=== PATIENT | male | born 1980 | race Asian ===

== ENCOUNTER 2024-09-09 15:23 | Emergency (ER) | payer OTHER ==
[~2024-09-09] VITALS: Ht 167.6 cm; Wt 90.9 kg
[2024-09-09 16:23] VITALS: BP 124/86; PULSE 84; RESP 19; TEMP 97.4; O2SAT 95
[2024-09-09] MEDS: IBUPROFEN 600 MG TABLET PO ONE (17:45)
[2024-09-09] MEDS: DOXYCYCLINE HYCLATE 100 MG TABLET PO ONE (17:45)
[2024-09-09] MEDS: CEPHALEXIN MONOHYDRATE 500 MG CAPSULE PO ONE (17:45)
== END 2024-09-09 18:03 ==
LOC: EMS 15:23
DX: N49.2 Inflammatory disorders of scrotum (principal); E78.00 Pure hypercholesterolemia, unspecified; I10 Essential (primary) hypertension; Z95.1 Presence of aortocoronary bypass graft
CPT/HCPCS: 10060; 55100; 99284; Z7502; Z7610